=== PATIENT | female | born 1950 | race African-American/Black ===

== ENCOUNTER 2017-04-07 12:01 | Emergency (ER) | payer BC, MEDICARE, OTHER ==
[~2017-04-07] VITALS: Ht 177.8 cm; Wt 69.2 kg
[~2017-04-07 12:01] MED LIST: ALEN1TAB48 PO; AMOX875T2 PO; FLUT50SP EACH NARE; TRIBTAB PO
[2017-04-07 12:04] VITALS: BP 181/98; PULSE 65; RESP 18; TEMP 98.3; O2SAT 99
[2017-04-07] MEDS ORDERED: IBUP-232 PO (12:56)
[2017-04-07 13:00] VITALS: BP 180/93; PULSE 59; RESP 16; O2SAT 99
[2017-04-07] MEDS ORDERED: KETOROLAC TROMETHAMINE 60 MG/2 ML (IM) VIAL IM ONE (13:00)
--- NOTE | 2017-04-07 13:02 | PD ---
HPI Chief Complaint: Oral / Dental Pain or Problem Time Seen by Provider: 12:56 Travel History International Travel<30 days: No Contact w/Intl Traveler<30days: No Traveled to known affect area: No History of Present Illness HPI 66-year-old female presents to the emergency room for evaluation of right lower tooth pain for the past 2 days. Patient states she has had pain for the past 5 days after eating crabs but it worsened severely last night. Pain is localized to the bottom, front tooth and radiates into her entire mouth. It is worsened with palpation and she was unable to brush her teeth this morning because of the pain. She has been using Peridex oral rinse but not taking anything else for pain. She called her dentist and her appointment is in 11 days. She called multiple other dentists to see if she can get an appointment sooner but they were all unavailable. Patient denies drainage, fever, chills, nausea, and vomiting. PFSH Past Medical History Blood Disorders: No Heart Rhythm Problems: No Cancer: No Cardiovascular Problems: Yes (HTN) High Cholesterol: No Chemotherapy: No Chest Pain: No Congestive Heart Failure: No Diabetes: No Diminished Hearing: No Endocrine: No Gastrointestinal Disorders: No Genitourinary: No Hepatitis: No Hiatal Hernia: No Hypertension: Yes (takes meds) Immune Disorder: No Medical other: No Musculoskeletal: No Neurologic: No Psychiatric: No Reproductive: No Respiratory: No Myocardial Infarction: No Radiation Therapy: No Thyroid Disease: No ?: Not Menopausal: Yes Past Surgical History Abdominal Surgery: No AICD: No Arteriovenous Shunt: No Cardiac Surgery: Yes Ear Surgery: No Endocrine Surgery: No Eye Surgery: No Genitourinary Surgery: No Gynecologic Surgery: No Hysterectomy: Yes (1991) Insulin Pump: No Joint Replacement: No Neurologic Surgery: No Oral Surgery: No Pacemaker: No Thoracic Surgery: No Other Surgery: Yes (hysterectomy) Social History Alcohol Use: No Tobacco Use: Yes (11/07 PPD) Substance Use: No Allergies-Medications (Allergen,Severity, Reaction): Coded Allergies: No Known Allergies (Verified , 04/07/17) Reported Meds & Prescriptions Reported Meds & Active Scripts Active Ibuprofen 600 Mg Tab 600 Mg PO Q8HR PRN Tribenzor (Ujybfyfdhl-Rpnbspsshh-Bvpuhfgfhbohwgmkntr) 20-5-12.5 mg Tab 1 Tab PO DAILY Reported Fluticasone Nasal [facility] 50 Mcg/Act Naspr 50 Mcg EACH NARE BID 50 mcg/spray Alendronate (Alendronate Sodium) 70 Mg Tab 70 Mg PO Q7D Review of Systems Except as stated in HPI: all other systems reviewed are Neg Physical Exam Narrative GENERAL: Well-nourished, well-developed female in no acute distress. Afebrile. Ambulatory. SKIN: Focused skin assessment warm/dry. HEAD: Normocephalic. EYES: No scleral icterus. No injection or drainage. DENTAL: Poor dentition overall. Multiple missing teeth. No malocclusion. Tooth #27 is extremely tender to palpation. There is no surrounding erythema, edema, or drainage. No obvious abscess. No submental, submandibular, or buccal induration. NECK: Supple, trachea midline. No JVD or lymphadenopathy. CARDIOVASCULAR: Regular rate and rhythm without murmurs, gallops, or rubs. RESPIRATORY: Breath sounds equal bilaterally. No accessory muscle use. Data Data Last Documented VS Vital Signs Date Time Temp Pulse Resp B/P Pulse Ox O2 Delivery O2 Flow Rate FiO2 04/07/17 13:00 59 16 180/93 99 Room Air 04/07/17 12:04 98.3 Orders Ketorolac Inj (Toradol Inj) (04/07/17 13:00) [facility] Medical Decision Making Medical Screen Exam Complete: Yes Emergency Medical Condition: Yes Medical Record Reviewed: Yes Differential Diagnosis Tooth pain versus gingivitis versus dental abscess Narrative Course 66-year-old female presents to the emergency room for evaluation of right, lower dental pain. The past 5 days that worsened last night. Pain started after eating crabs. She denies systemic signs of infection. Physical exam is reassuring. There is no evidence of infection. Extreme tenderness to palpation of tooth #27. Patient was given Toradol in the emergency room. She' ll be discharged with prescription for ibuprofen. She has an appointment with her dentist on April 18. Patient was told to follow-up with her dentist or return for worsening symptoms. She understands and agrees to this plan. Diagnosis Primary Impression: Dentalgia Referrals: Dentist Patient Instructions: General Instructions, Toothache (ED) Additional Instructions: Rest and drink plenty of fluids. Ibuprofen as directed, as needed for pain. Follow-up with a dentist. Return to the emergency room for worsening symptoms. Med/Other Pt SpecificInfo: Prescription(s) given Scripts Ibuprofen 600 Mg [id number] Mg PO Q8HR PRN (PAIN) #15 TAB Ref 0 Prov:Cori Hull MD 04/07/17 Disposition: 01 DISCHARGE HOME Condition: Stable Collette Bower Apr 07, 2017 13:02
[2017-04-08] MEDS ORDERED: BP MED (16:03)
[2017-04-08] MEDS ORDERED: IBUP800T23 PO (16:51)
[2017-04-08] MEDS ORDERED: PENI250T PO (16:51)
[2017-04-08] MEDS ORDERED: MELO7.5T4 PO (16:54)
== END 2017-04-07 13:16 | disposition home or self-care (01) ==
LOC: PHEFT 12:01
DX: K08.89 Other specified disorders of teeth and supporting structures (principal); I10 Essential (primary) hypertension; F17.200 Nicotine dependence, unspecified, uncomplicated
CPT/HCPCS: 96372; 99284; J1885

== ENCOUNTER 2017-04-08 15:51 | Emergency (ER) | payer MEDICARE, OTHER ==
[~2017-04-08] VITALS: Ht 167.6 cm; Wt 69.0 kg
[~2017-04-08 15:51] MED LIST changes: +IBUP-232 PO
[2017-04-08 15:54] VITALS: BP 170/92; PULSE 75; RESP 15; TEMP 98.8; O2SAT 99
[2017-04-08] MEDS ORDERED: BP MED (16:03)
[2017-04-08] MEDS ORDERED: PENI250T PO (16:51)
[2017-04-08] MEDS ORDERED: IBUP800T23 PO (16:51)
--- NOTE | 2017-04-08 16:51 | PD ---
HPI Chief Complaint: Oral / Dental Pain or Problem Time Seen by Provider: 16:00 Travel History International Travel<30 days: No Contact w/Intl Traveler<30days: No Traveled to known affect area: No History of Present Illness HPI 66-year-old female presents emergency department with chief complaint of right low dental pain 3 days. She denies fever, chills, or difficulty swallowing. Patient has widespread dental caries. Tooth #29 decayed and fractured with gum tenderness. PFSH Past Medical History Blood Disorders: No Heart Rhythm Problems: No Cancer: No Cardiovascular Problems: Yes (HTN) High Cholesterol: No Chemotherapy: No Chest Pain: No Congestive Heart Failure: No Diabetes: No Diminished Hearing: No Endocrine: No Gastrointestinal Disorders: No Genitourinary: No Hepatitis: No Hiatal Hernia: No Hypertension: Yes (takes meds) Immune Disorder: No Musculoskeletal: No Neurologic: No Psychiatric: No Reproductive: No Respiratory: No Myocardial Infarction: No Radiation Therapy: No Thyroid Disease: No ?: Not Menopausal: Yes Past Surgical History Abdominal Surgery: No AICD: No Arteriovenous Shunt: No Cardiac Surgery: Yes Ear Surgery: No Endocrine Surgery: No Eye Surgery: No Genitourinary Surgery: No Gynecologic Surgery: No Hysterectomy: Yes (1991) Insulin Pump: No Joint Replacement: No Neurologic Surgery: No Oral Surgery: No Pacemaker: No Thoracic Surgery: No Other Surgery: Yes (hysterectomy) Social History Alcohol Use: No Tobacco Use: Yes (2 PPD) Substance Use: No Allergies-Medications (Allergen,Severity, Reaction): Coded Allergies: No Known Allergies (Verified , 04/08/17) Reported Meds & Prescriptions Reported Meds & Active Scripts Active Meloxicam 7.5 Mg Tab 7.5 Mg PO DAILY Penicillin V Potassium 250 Mg Tab 250 Mg PO Q6H Reported [Bp Med] Review of Systems Except as stated in HPI: all other systems reviewed are Neg Physical Exam Narrative GENERAL: Well-nourished, well-developed patient. SKIN: Focused skin assessment warm/dry. HEAD: Normocephalic. EYES: No scleral icterus. No injection or drainage. MOUTH: Widespread dental decay. Tooth #29 decayed and fractured. Mild gum erythema NECK: Supple, trachea midline. No JVD or lymphadenopathy. CARDIOVASCULAR: Regular rate and rhythm without murmurs, gallops, or rubs. RESPIRATORY: Breath sounds equal bilaterally. No accessory muscle use. GASTROINTESTINAL: Abdomen soft, non-tender, nondistended. MUSCULOSKELETAL: No cyanosis, or edema. BACK: Nontender without obvious deformity. No CVA tenderness. Data Data Last Documented VS Vital Signs Date Time Temp Pulse Resp B/P Pulse Ox O2 Delivery O2 Flow Rate FiO2 04/08/17 15:54 98.8 75 15 170/92 99 Orders Ibuprofen (Motrin) (04/08/17 17:00) Ketorolac Inj (Toradol Inj) (04/08/17 17:15) [facility] Medical Decision Making Medical Screen Exam Complete: Yes Emergency Medical Condition: Yes Medical Record Reviewed: Yes Differential Diagnosis Dental abscess, dental caries, periodontal disease Narrative Course 66-year-old female presents emergency department with chief complaint of right low dental pain 3 days. She denies fever, chills, or difficulty swallowing. Patient has widespread dental caries. Tooth #29 decayed and fractured with gum tenderness. Patient will be treated with penicillin and Motrin instructed to follow with dentist. Diagnosis Primary Impression: Pain, dental Referrals: Dentist Scripts Meloxicam 7.5 Mg Tab7.5 Mg PO DAILY #10 TAB Ref 0 Prov:Lucy Noonan 04/08/17 Penicillin V Potassium 250 Mg [id number] Mg PO Q6H #28 TAB Prov:Lucy Noonan 04/08/17 Disposition: 01 DISCHARGE HOME Condition: Stable Lucy Noonan Apr 08, 2017 16:51
[2017-04-08] MEDS ORDERED: MELO7.5T4 PO (16:54)
[2017-04-08] MEDS ORDERED: IBUPROFEN 800 MG TAB PO ONE (17:00)
[2017-04-08] MEDS ORDERED: KETOROLAC TROMETHAMINE 60 MG/2 ML (IM) VIAL IM ONE (17:15)
== END 2017-04-08 17:20 | disposition home or self-care (01) ==
LOC: PHEFT 15:51
DX: K08.89 Other specified disorders of teeth and supporting structures (principal); K02.9 Dental caries, unspecified; I10 Essential (primary) hypertension; F17.210 Nicotine dependence, cigarettes, uncomplicated
CPT/HCPCS: 96372; 99284; J1885

== ENCOUNTER 2017-05-04 11:47 | Emergency (ER) | payer MEDICARE, OTHER ==
[~2017-05-04] VITALS: Ht 180.3 cm; Wt 68.0 kg
[~2017-05-04 11:47] MED LIST changes: -ALEN1TAB48 PO; -AMOX875T2 PO; +BP MED; -FLUT50SP EACH NARE; -IBUP-232 PO; +MELO7.5T4 PO; +PENI250T PO; -TRIBTAB PO
[2017-05-04 11:53] VITALS: BP 151/106; PULSE 74; RESP 16; TEMP 97.9; O2SAT 99
[2017-05-04] MEDS ORDERED: OLME0.09 PO (12:09)
[2017-05-04] MEDS ORDERED: FLUT50SP EACH NARE (12:09)
[2017-05-04] MEDS ORDERED: AMLO5TAB2 PO (12:09)
[2017-05-04] MEDS ORDERED: HYDR12.57 PO (12:09)
--- NOTE | 2017-05-04 12:25 | PD ---
HPI Chief Complaint: Facial Pain or Swelling Time Seen by Provider: 12:24 Travel History International Travel<30 days: No Contact w/Intl Traveler<30days: No Traveled to known affect area: No History of Present Illness HPI 66-year-old female came to the emergency room with history of chronic dental pain and sinus infection. She said "It's there in my record I have been here before and please check that". Patient is mainly here for toothache and facial pain. She was initially when I entered the room was sitting comfortably. But as soon as I started talking to her she started grimacing and holding her face. I was unable to get much history out of her. Vital signs are otherwise stable. [facility] Past Medical History Narrative Medical List of her past medical, surgical, social and family history was reviewed from the nursing note. Blood Disorders: No Heart Rhythm Problems: No Cancer: No Cardiovascular Problems: Yes (HTN) High Cholesterol: No Chemotherapy: No Chest Pain: No Congestive Heart Failure: No Diabetes: No Diminished Hearing: No Endocrine: No Gastrointestinal Disorders: No Genitourinary: No Hepatitis: No Hiatal Hernia: No Hypertension: Yes Immune Disorder: No Musculoskeletal: No Neurologic: No Psychiatric: No Reproductive: No Respiratory: No Myocardial Infarction: No Radiation Therapy: No Thyroid Disease: No Tetanus Vaccination: Unknown Influenza Vaccination: No Menopausal: Yes Past Surgical History Abdominal Surgery: No AICD: No Arteriovenous Shunt: No Cardiac Surgery: Yes Ear Surgery: No Endocrine Surgery: No Eye Surgery: No Genitourinary Surgery: No Gynecologic Surgery: No Hysterectomy: Yes (1991) Insulin Pump: No Joint Replacement: No Neurologic Surgery: No Oral Surgery: No Pacemaker: No Thoracic Surgery: No Other Surgery: Yes (hysterectomy) Social History Alcohol Use: No Tobacco Use: Yes (11/08 PPD) Substance Use: No Allergies-Medications (Allergen,Severity, Reaction): Coded Allergies: No Known Allergies (Verified , 05/04/17) Comments No known drug allergies. Reported Meds & Prescriptions Reported Meds & Active Scripts Active Ibuprofen 600 Mg Tab 600 Mg PO Q6H PRN Augmentin (Amoxicillin-Clavulanate) 500-125 mg Tab 500 Mg PO BID 10 Days Reported Fluticasone Nasal [place] 50 Mcg/Act Naspr 50 Mcg EACH NARE BID 50 mcg/spray Olmesartan 20 Mg Tab 20 Mg PO DAILY Hydrochlorothiazide 12.5 Mg Cap 12.5 Mg PO DAILY Amlodipine (Amlodipine Besylate) 5 Mg Tab 5 Mg PO DAILY Narrative Medication List of her home medications reviewed from the nursing note. Review of Systems Except as stated in HPI: all other systems reviewed are Neg Physical Exam Narrative GENERAL: Awake, alert, moderate distress SKIN: Focused skin assessment warm/dry. HEAD: Atraumatic. Normocephalic. EYES: Pupils equal and round. No scleral icterus. No injection or drainage. ENT: No nasal bleeding or discharge. Mucous membranes pink and moist. Caries tooth on the right upper premolar but the gum condition looks good. NECK: Trachea midline. No JVD. CARDIOVASCULAR: Regular rate and rhythm. No murmur appreciated. RESPIRATORY: No accessory muscle use. Clear to auscultation. Breath sounds equal bilaterally. GASTROINTESTINAL: Abdomen soft, non-tender, nondistended. Hepatic and splenic margins not palpable. MUSCULOSKELETAL: No obvious deformities. No clubbing. No cyanosis. No edema. NEUROLOGICAL: Awake and alert. No obvious cranial nerve deficits. Motor grossly within normal limits. Normal speech. PSYCHIATRIC: Appropriate mood and affect; insight and judgment normal. Data Data Last Documented VS Vital Signs Date Time Temp Pulse Resp B/P Pulse Ox O2 Delivery O2 Flow Rate FiO2 05/04/17 12:00 16 05/04/17 11:53 97.9 74 151/106 99 Orders Acetamin-Hydrocod 325-5 Mg ([place] 5-325 (05/04/17 12:45) Ibuprofen (Motrin) (05/04/17 12:45) MDM Medical Decision Making Medical Screen Exam Complete: Yes Emergency Medical Condition: Yes Medical Record Reviewed: Yes Differential Diagnosis Dental caries, chronic sinusitis Narrative Course 12:44 PM I looked at her past ER visits and patient has been in the ER multiple times in [facility]. She was here last time 3 weeks ago for the same complaint. There was a CT scan done about 6 weeks ago which showed chronic sinusitis. I've given her pain medication. She'll be discharged home. She told me she has a dentist and I want her to follow up with her dentist. Procedures EKG Prior to Arrival: No Diagnosis Primary Impression: Dentalgia Referrals: Primary Care Physician Additional Instructions: Please follow-up with your dentist. Take the medication given to you as per the prescription direction. Med/Other Pt SpecificInfo: Prescription(s) given Scripts Ibuprofen 600 Mg [id number] Mg PO Q6H PRN (Pain/Inflammation) #40 TAB Ref 0 Prov:Radha Oconnor MD 05/04/17 Amoxicillin-Clavulanate (Augmentin)500-125 mg [id number] Mg PO BID 10 Days Ref 0 Prov:Radha Oconnor MD 05/04/17 Disposition: 01 DISCHARGE HOME Condition: Stable Radha Oconnor MD May 04, 2017 12:25
[2017-05-04] MEDS ORDERED: ACETAMINOPHEN/HYDROcodone 325 MG/5 MG TAB PO ONE (12:45)
[2017-05-04] MEDS ORDERED: IBUPROFEN 600 MG TAB PO ONE (12:45)
[2017-05-04] MEDS ORDERED: AUGM500T7 PO (12:46)
[2017-05-04] MEDS ORDERED: IBUP-232 PO (12:46)
[2017-05-17] MEDS ORDERED: ALEN1TAB48 PO (08:25)
[2017-05-17] MEDS ORDERED: OLME0.09 PO (12:58)
== END 2017-05-04 13:35 | disposition home or self-care (01) ==
LOC: PHED 11:47
DX: K08.89 Other specified disorders of teeth and supporting structures (principal); F17.210 Nicotine dependence, cigarettes, uncomplicated; I10 Essential (primary) hypertension
CPT/HCPCS: 99283

== ENCOUNTER 2017-05-28 12:49 | Emergency (ER) | payer OTHER, MEDICAID ==
[~2017-05-28] VITALS: Ht 177.8 cm; Wt 69.0 kg
[~2017-05-28 12:49] MED LIST changes: +ALEN1TAB48 PO; +AMLO5TAB2 PO; +AUGM500T7 PO; -BP MED; +FLUT50SP EACH NARE; +HYDR12.57 PO; +IBUP-232 PO; -MELO7.5T4 PO; +OLME0.09 PO; -PENI250T PO
[2017-05-28 12:57] VITALS: BP 123/79; PULSE 82; RESP 14; TEMP 98.1; O2SAT 98
[2017-05-28 13:16] VITALS: BP 123/79; PULSE 82; RESP 14; TEMP 98.1; O2SAT 98
[2017-05-28] MEDS ORDERED: MONT10TA4 PO (13:21)
[2017-05-28] MEDS ORDERED: AMOX875T2 PO (13:21)
--- NOTE | 2017-05-28 13:49 | PD ---
HPI Chief Complaint: Oral / Dental Pain or Problem Time Seen by Provider: 13:35 Travel History International Travel<30 days: No Contact w/Intl Traveler<30days: No Traveled to known affect area: No History of Present Illness HPI 66-year-old female presents to the emergency room for evaluation of right jaw pain for the past 4 days. Pain started gradually worsened significantly causing significant pain. Pain is worsened with palpation of the skin of the jaw area, with range of motion of the jaw such as with chewing, and with speaking. Patient has had intermittent jaw pain for a long period of time and has been to 3 different dentists and an ENT doctor. She has been on amoxicillin , penicillin, Augmentin, doxycycline, montelukast, and prescription pain medication in the last 1.5 months without any significant relief in symptoms. Her dentist recommended she be evaluated for sinusitis because his treatments were not working so she is under the care of an ENT at this time. Patient also followed-up with her primary care physician but could not get an appointment because her PCP, Dr. Bruner, is on leave. States she tried to get into see him but they were booked until a few weeks from now. No fever, chills, nausea, or vomiting. PFSH Past Medical History Hx Anticoagulant Therapy: No Blood Disorders: No Heart Rhythm Problems: No Cancer: No Cardiovascular Problems: Yes (HTN) High Cholesterol: No Chemotherapy: No Chest Pain: No Congestive Heart Failure: No Diabetes: No Diminished Hearing: No Endocrine: No Gastrointestinal Disorders: No Genitourinary: No Hepatitis: No Hiatal Hernia: No Hypertension: Yes Immune Disorder: No Medical other: No Musculoskeletal: No Neurologic: No Psychiatric: No Reproductive: No Respiratory: No Myocardial Infarction: No Radiation Therapy: No Thyroid Disease: No ?: Not Menopausal: Yes Past Surgical History Abdominal Surgery: No AICD: No Arteriovenous Shunt: No Cardiac Surgery: Yes Ear Surgery: No Endocrine Surgery: No Eye Surgery: No Genitourinary Surgery: No Gynecologic Surgery: No Hysterectomy: Yes (1991) Insulin Pump: No Joint Replacement: No Neurologic Surgery: No Oral Surgery: No Pacemaker: No Thoracic Surgery: No Other Surgery: Yes (hysterectomy) Social History Alcohol Use: No Tobacco Use: Yes (11/08 PPD) Substance Use: No Allergies-Medications (Allergen,Severity, Reaction): Coded Allergies: No Known Allergies (Verified , 05/28/17) Reported Meds & Prescriptions Reported Meds & Active Scripts Active Olmesartan 20 Mg Tab 20 Mg PO DAILY Alendronate (Alendronate Sodium) 70 Mg Tab 70 Mg PO Q7D Reported Montelukast (Montelukast Sodium) 10 Mg Tab 10 Mg PO HS Amoxicillin-Clavulanate 875-125 mg Tab 875 Mg PO BID not for use in CrCl <30 mL/minute Fluticasone Nasal [place] 50 Mcg/Act Naspr 50 Mcg EACH NARE BID 50 mcg/spray Hydrochlorothiazide 12.5 Mg Cap 12.5 Mg PO DAILY Amlodipine (Amlodipine Besylate) 5 Mg Tab 5 Mg PO DAILY Review of Systems Except as stated in HPI: all other systems reviewed are Neg Physical Exam Narrative GENERAL: Well-nourished, well-developed female in no acute distress. Afebrile. Ambulatory. SKIN: Focused skin assessment warm/dry. No erythema or ecchymosis. HEAD: Normocephalic. No facial edema. EYES: No scleral icterus. No injection or drainage. NECK: Supple, trachea midline. No JVD or lymphadenopathy. DENTAL: No loose or chipped teeth. No malocclusion. Mild to moderate decay throughout. No significant erythema or gingival irritation. No obvious abscess. CARDIOVASCULAR: Regular rate and rhythm without murmurs, gallops, or rubs. RESPIRATORY: Breath sounds equal bilaterally. No accessory muscle use. Data Data Last Documented VS Vital Signs Date Time Temp Pulse Resp B/P Pulse Ox O2 Delivery O2 Flow Rate FiO2 05/28/17 13:16 98.1 82 14 123/79 98 05/28/17 12:57 Room Air [facility] Medical Decision Making Medical Screen Exam Complete: Yes Emergency Medical Condition: Yes Medical Record Reviewed: Yes Differential Diagnosis Dentalgia, trigeminal neuralgia, herpes zoster, TMJ disorder Narrative Course 66-year-old female presents to the emergency room for evaluation of acute on chronic right-sided jaw pain that is present for the past 2 months. States this exacerbation started 4 days ago. Gradual onset. Pain is worsened with palpation to the area, chewing, speaking, washing her face, and range of motion of the jaw. Patient states it feels like it is on the outside of her jaw/skin area, not in her teeth. Patient has pain in the V3 distribution of the trigeminal nerve. No obvious dental infection. Given history and physical exam , trigeminal neuralgia may be the etiology of pain. She has been on 4 different antibiotics in the past 1.5 months without any improvement in symptoms and I do not believe more antibiotics are indicated at this time. No evidence of Alex angina; submental, submandibular, and buccal spaces are soft without induration. Vital signs stable. I spoke to the attending physician, Dr. Martino, who recommends outpatient follow-up with neurologist. Discharged with Motrin and tramadol and told to follow-up as directed or return for worsening symptoms. She understands and agrees to plan. Diagnosis Primary Impression: Facial pain Referrals: Neurologist Primary Care Physician Patient Instructions: Atypical Facial Pain (ED), General Instructions Additional Instructions: Rest and drink plenty of fluids. Take tramadol as directed, as needed for pain. Do not drink alcohol or drive while taking this medication. Take ibuprofen with food as directed, as needed for pain. Apply ice to the affected area for 20 minutes at a time, as needed for pain and swelling. Follow-up with a primary care physician. Return to the emergency room for worsening symptoms. Med/Other Pt SpecificInfo: Prescription(s) given Disposition: 01 DISCHARGE HOME Condition: Stable Collette Bower May 28, 2017 13:49
[2017-05-28] MEDS ORDERED: TRAM50TA PO ×2 (14:01→14:02)
[2017-05-28] MEDS ORDERED: IBUP-232 PO (14:01)
== END 2017-05-28 14:07 | disposition home or self-care (01) ==
LOC: PHEFT 12:49
DX: R51 Headache (principal); R68.84 Jaw pain; I10 Essential (primary) hypertension; F17.200 Nicotine dependence, unspecified, uncomplicated
CPT/HCPCS: 99283